=== PATIENT | female | born 1975 | race Caucasian/White ===

== ENCOUNTER 2021-03-30 22:19 | Emergency (ER) | payer MEDICARE, SELFPAY ==
--- NOTE | ~2021-03-30 | CT_ITS ---
EXAMINATION: CT brain wo con DATE: 03/31/2021 00:07 INDICATION: Altered mental status. TECHNIQUE: Computed tomography (CT) of the head was performed without intravenous contrast. The mA wa s adjusted according to patient size. Iterative reconstruction technique was employed. The dose-lengt h product was 681.00 mGy-cm. COMPARISON: None FINDINGS: Motion artifact is noted. There is no intracranial hemorrhage, acute infarction, or abnorma l intracranial mass lesion. The ventricles are normal in size. There is mild mucosal thickening in th e paranasal sinuses. There are small bilateral mastoid effusions, but motion artifact decreases speci ficity. The orbits are normal. IMPRESSION: 1. No acute intracranial pathology. Sensitivity is moderately decreased by motion artifact. Reviewed, dictated and finalized at location A. IMPRESSION: 1. No acute intracranial pathology. Sensitivity is moderately decreased by janelle on artifact.
[2021-03-30 22:33] VITALS: BP 132/86; PULSE 97; RESP 18; TEMP 36.6; O2SAT 97
--- NOTE | 2021-03-30 22:45 | ECG_ITS ---
Measurements Intervals [place] Rate: 83 P: 67 NM: 158 QRS: 53 QRSD: 94 T: 56 QT: 374 QTc: 441 Interpretive Statements SINUS RHYTHM POSSIBLE LEFT ATRIAL ENLARGEMENT BASELINE ARTIFACT- I, II, III, AVR, AVL, AVF BORDERLINE ECG Electronically Signed On 03-31-2021 6:27:59 CDT by Delroy Clifford D.O.
[2021-03-30] MEDS: SODIUM CHLORIDE 0.9% IV 1,000 ML 999 ML IV CONT (22:51)
[2021-03-30 23:03] LABS: Basophils Percent Auto 0.4 % (0.2-1.2); Eosinophils Absolute Auto 0.1 K/mm3 (0-0.3); Eosinophils Percent Auto 1.5 % (0-4.4); Hematocrit 40.1 % (37.0-47.0); Hemoglobin 13.4 g/dL (12.0-15.0); Immature Granulocyte Absolute 0.02 K/mm3 (0.00-0.031); Immature Granulocyte Percent A 0.3 % (0-0.5); Lymphocytes Absolute Auto 2.83 K/mm3 (0.9-3.2); Lymphocytes Percent Auto 41.1 % (18.3-44.2); Mean Corpuscular HGB Conc 33.4 g/dl (32-36); Mean Corpuscular Hemoglobin 30.7 pg (26-34); Mean Corpuscular Volume 91.8 fl (80-100); Mean Platelet Volume 10.8 fl (7.4-10.4); Monocytes Absolute Auto 0.6 K/mm3 (0.1-0.6); Monocytes Percent Auto 8.3 % (2.6-8.5); Neutrophils Absolute Auto 3.3 K/mm3 (1.3-6.7); Neutrophils Percent Auto 48.4 % (45.5-73.1); Platelet Count Result 212 k/mm3 (150-375); Red Blood Count 4.37 M/mm3 (4.2-5.4); Red Cell Distribution Width 12.3 % (11.5-14.5); White Blood Count 6.9 K/mm3 (4.5-10.0)
[2021-03-30 23:13] LABS: Alanine Aminotransferase 16 U/L (4-35); Albumin Level 4.3 g/dL (3.5-5.1); Alkaline Phosphatase 67 U/L (38-126); Anion Gap 6 mmol/L (8-16); Aspartate Amino Transferase 24 U/L (14-36); Bilirubin,Total 0.5 mg/dL (0.2-1.3); Blood Urea Nitrogen 17 mg/dL (7-17); Calcium 9.2 mg/dL (8.4-10.2); Carbon Dioxide 29 mmol/L (22-30); Chloride 104 mmol/L (98-107); Estimated CRCL calculation 103 ml/min; Estimated Glomerular Filt Rate > 60; Ethanol < 10 mg/dL (<10); Glucose 92 mg/dL (65-110); Potassium 3.8 mmol/L (3.4-5.0); Sodium 139 mmol/L (137-145)
[2021-03-30 23:14] LABS: Add Urine Microscopic? YES; Appearance Urine Cloudy (Clear); Bilirubin Urine Negative (Negative); Blood Urine 3+ (Negative); Color Urine Yellow (Yellow); Glucose Urine UA Negative (Negative); Ketones Urine Negative (Negative); Leukocyte Esterase Ur 1+ LEU/UL (Negative); Mucus Urine Rare /lpf; Nitrate Urine Negative (Negative); Protein Urine Negative (Negative); Squamous Epithelial Cell Urine Moderate /hpf (Few); Urobilinogen Urine Negative mg/dL (<2.0)
[2021-03-30 23:23] LABS: Barbiturate Screen Urine Negative (Negative); Benzodiazepines Screen Urine Negative (Negative)
--- NOTE | 2021-03-30 23:26 | ED.AMS ---
HPI - Altered Mental Status General Chief Complaint: Altered Mental Status Stated Complaint: altered Time Seen by Provider: 03/30/21 22:35 Source: patient and EMS Mode of arrival: EMS Limitations: altered mental status History of Present Illness HPI narrative: Patient is a 45-year-old female brought in by EMS after found rolling around someone's yard. Per EMS patient was having paranoid thoughts as she was rolling around the yard screaming. Patient states that she has a history of borderline personality disorder and schizoaffective, claims that she has been taking her medications. Patient denies any suicidal homicidal thoughts. Related Data Allergies Allergy/AdvReac Type Severity Reaction Status Date / Time No Known Allergies Allergy Unverified 06/02/11 12:49 Review of Systems Review of Systems: ROS unobtainable: Yes unobtainable due to mental status [facility] Social History Social History Substance use type: does not use Comments Past medical history: Schizoaffective disorder, borderline personality disorder Family history: Unknown Social history: Non-smoker no EtOH or drug use Exam Const: General: alert Orientation/consciousness: oriented to person, oriented to place, oriented to time, patient oriented x3 and No confusion Limitations: altered mental status Other: Unkempt HENMT: Head: normal to inspection, normocephalic and atraumatic Ears: hearing grossly normal bilaterally, TM normal on the right and TM normal on the left General nose exam: Normal external nose present, Normal nares present and No nasal discharge present Face and sinus: normal facial exam Mouth: Yes Normal oral and palatal mucosa present, Yes lip normal, Yes tongue normal and Yes oropharynx normal Throat: posterior oropharynx normal, tonsils normal and uvula midline Eyes: General: appearance normal, both eyes and all related structures Pupils: Equal, round and reactive pupils present EOM: EOMs intact bilaterally Neck: Neck: normal visual inspection, full ROM, no lymphadenopathy and no meningeal signs Chest: Chest palpation & inspection: normal inspection of the chest Resp: Effort & Inspection: normal respiratory effort, able to speak in complete sentences, no respiratory distress and not tachypneic Auscultation: clear to auscultation bilaterally, no crackles, no rales, no rhonchi and no wheezes Cardio: Rate: regular rate Rhythm: regular rhythm GI: Inspection: normal to inspection GI Palp: No abdominal tenderness, Yes Soft to palpation, No Tenderness to palpation present (GI), No Guarding due to palpation present (GI), No Rigid due to palpation and No Rebound tenderness present Auscultation: normal bowel sounds : General: Yes no CVA tenderness Back/Spine/Pelvis: Back: no CVA tenderness Skin: General skin exam: normal color, no rashes or lesions noted, elasticity normal and turgor normal Neuro: General: oriented to person, oriented to place, tone normal, moves all extremities, Normal light touch and pain sensation, no meningeal signs, no focal motor deficits and No confusion Cranial nerves: Yes Equal, round and reactive pupils present Speech: No Abnormal speech present Sensory Exam: No Sensory deficit (Neuro) Extrem: General: normal to inspection, full ROM and capillary refill normal Psych: Thought content: Yes Paranoid delusions present Other: Unkempt, feeling all extremities, nonsensical words/sentences Course Course Emergency Course: Patient reexamined at 5 AM, patient now oriented x4. Paranoid delusions resolved. Patient states that she does not have anyone that can pick her up and she has no place to stay. Vital Signs Vital signs: Vital Signs Temperature 36.6 C 03/30/21 22:33 Pulse Rate 97 03/30/21 22:33 Respiratory Rate 18 03/30/21 22:33 Blood Pressure 132/86 03/30/21 22:33 Pulse Oximetry 97 03/30/21 22:33 Temperature 36.6 C 03/30/21 22:33 Pulse Rate 106 H 03/31/21 04:51 Respiratory Rate 19
[2021-03-30] MEDS: diphenhydrAMINE HCl INJ 50 MG/ML VIAL 25 MG IV PUSH (23:33)
[2021-03-30 23:34] LABS: Cannabinoid Screen Urine Negative (Negative); Cocaine Screen Urine Negative (Negative); Methadone Screen Urine Negative (Negative); Opiate Screen Urine Negative (Negative); Phencyclidine Screen Urine Negative (Negative)
[2021-03-30] MEDS: HALOPERIDOL LACTATE 5 MG/ML VIAL IV PUSH (23:34)
--- NOTE | 2021-03-30 23:34 | PC.NURSE ---
Pt continues to thrash in stretcher, restless. Given ordered IVP meds per EDP order. Pt remains alert and discussed POC at this time.
--- NOTE | 2021-03-30 23:56 | PC.NURSE ---
Pt to CT scan via stretcher at this time.
[2021-03-31 00:47] VITALS: BP 138/87; PULSE 99; RESP 15; O2SAT 97
[2021-03-31 01:02] LABS: Amphetamine Screen Urine Positive (Negative)
[2021-03-31 02:34] VITALS: BP 144/74; PULSE 101; RESP 18; O2SAT 99
[2021-03-31 04:51] VITALS: BP 139/89; PULSE 106; RESP 19; O2SAT 97
[2021-03-31 07:03] VITALS: BP 132/81; PULSE 87; RESP 15; O2SAT 98
--- NOTE | 2021-03-31 07:03 | PC.NURSE ---
Nurse to Nurse report called to Mario AMIN at [place] [phone], requesting an ETA when EMS arrives to transport pt.
--- NOTE | 2021-03-31 07:16 | PC.NURSE ---
care coordination coming to assist with pt discharge
[2021-03-31 10:08] VITALS: RESP 16; O2SAT 98
--- NOTE | 2021-03-31 10:11 | PCCCNOTE ---
Spoke with patient states that she gets transportation through insurance, does not have phone number or card. Google search for Medicaid [place] transportation [phone] , unable to speak with a rep. Spoke with rep at [employer], advised that since she has managed Medicaid through [facility] must go through [facility] as they will get fined if transportation is provided- advised to call [phone], called to this phone number which was a medical alert company with phone loop and unable to speak with a agency sales representative. Google search [facility] Spoke with Edwige at [facility], at [phone], she states that she will have dispatch work on it and will call w/in the hour to the ER to advise of what company and what time. Reference # [id number]. natural resources specialist notified and patient- Patient states that [address]. Called back to [facility] [employer] spoke with and updated address to [address] and provided with phone # for [employer]- called to [employer] at [phone], spoke with Judd and provided correct # of [phone].
== END 2021-03-31 10:09 | disposition home or self-care (01) ==
PROVIDERS: Emergency Provider Emergency Medicine; PCP Family Medicine
DX: F15.959 Other stimulant use, unspecified with stimulant-induced psychotic disorder, unspecified (principal); F25.9 Schizoaffective disorder, unspecified; F60.3 Borderline personality disorder
CPT/HCPCS: 36415; 70450; 80053; 80307; 81001; 81025; 85025; 93005; 96361; 96374; 96375; 99284; J1200; J1630; J7030

== ENCOUNTER 2023-05-29 08:06 | Emergency (ER) | payer MEDICAID, SELFPAY ==
[2023-05-29] VITALS (7 sets, daily range): BP systolic 148–176; BP diastolic 87–120; PULSE 63–84; RESP 14–20; TEMP 36.9; O2SAT 98–100
--- NOTE | ~2023-05-29 | CT_ITS ---
Non-contrast Head CT History: Headache COMPARISON: 03/30/2021 Technique: Axial non-contrast imaging of the brain was performed. Dose reduction technique was used on this scan by utilizing automated exposure control and iterative reconstruction technique. The dose -length product (DLP) was 681.00 mGy-cm. Findings: There is no evidence of intracranial hemorrhage, mass lesion, or acute infarct. Brain par enchyma appears normal. The ventricles and subarachnoid spaces are normal in size. The calvarium ap pears normal. The visualized paranasal sinuses and mastoid air cells are clear. Impression: No significant abnormality seen. Reviewed, dictated and finalized at location . [facility] Impression: No significant abnormality seen.
--- NOTE | ~2023-05-29 | XR_ITS ---
Clinical Indication: Hypertension, cough PA and lateral views of the chest: Comparison: 05/12/2022 Findings: The lungs are clear, without evidence of focal consolidation or pleural effusion. Cardiome diastinal silhouette is within normal limits. Bones and soft tissues are unremarkable. Impression: Normal chest. Reviewed, dictated and finalized at [facility]. PRESS OPERATOR Impression: Normal chest.
--- NOTE | 2023-05-29 09:00 | ED.RECABL ---
HPI - Recheck/Abnormal Lab/Rx General Chief Complaint: Recheck/Abnormal Lab/Rx Stated Complaint: B/P problems Time Seen by Provider: 05/29/23 09:00 Source: patient Mode of arrival: ambulatory Limitations: no limitations History of Present Illness HPI narrative: Rosaura is a 48-year-old female patient presenting to the ER today with complaints of high blood pressure, headache, dizziness, sore throat, chest congestion, and cough. She reports she has had the cough and congestion with the sore throat for a few days now however this morning she woke up and her blood pressure was 200 systolic. She is currently in [facility] [place]-states she is going to rehab soon for meth abuse. Reports she has been clean of meth for 2 weeks now. Related Data Allergies Allergy/AdvReac Type Severity Reaction Status Date / Time ziprasidone [From Geodon] Allergy Chest Pain Verified 05/29/23 08:08 aripiprazole [From Abicarmen] AdvReac Other Verified 05/29/23 08:08 Review of Systems Review of Systems: Pertinent positives per HPI. Patient denies any fever, chills, rash, visual changes, dizziness, shortness of breath, chest pain, palpitations, nausea, vomiting, diarrhea, constipation, abdominal pain, or any urinary issues. [facility] Social History Social History Substance use type: does not use Comments At the time of my signature, I reviewed and agree with the nursing past medical, surgical, social, and family history. There is no relevant family history pertinent to the patient complaint. Exam Narrative: General: Well-developed, well nourished, in no apparent distress Head: Normocephalic, atraumatic Eyes: Pupils equally round and reactive to light bilaterally, EOM intact, sclera and conjunctive clear, no discharge, lids normal Ears: TMs intact and congested, ear canals clear, no drainage, grossly hearing normal. Nose: Nares patent, clear discharge, no inflammation, no sinus tenderness. Mouth: Oropharynx without lesions or masses, poor dentition, MMM. Tongue midline, even rise and fall of uvula Neck: Supple, trachea midline, no enlargement of anterior or posterior cervical nodes, no thyroid masses or goiter palpable. Cardio: Regular rate and rhythm, s1 and s2 normal, no murmur appreciated. Resp: Diminished in bases otherwise clear, no rhonchi, rales, wheezing or rubs Musculoskeletal: No deformity, non-tender to palpation, grossly normal range of motion, muscle strength strong and equal, peripheral pulse strong, no edema, no cyanosis, normal gait and station Neuro: Alert and oriented x4 with normal speech, no focal deficits, cranial nerves I through XII intact, muscle strength 5 out of 5, sensation intact bilaterally Course Course Emergency Course: Portions of this record may have been created with voice recognition software. Vital Signs Vital signs: Vital Signs Temperature 36.9 C 05/29/23 08:14 Pulse Rate 84 05/29/23 08:14 Respiratory Rate 20 05/29/23 08:14 Blood Pressure 160/100 H 05/29/23 08:14 Pulse Oximetry 100 05/29/23 08:14 Oxygen Delivery Room Air 05/29/23 08:14 Temperature 36.9 C 05/29/23 08:14 Pulse Rate 66 05/29/23 10:41 Respiratory Rate 16 05/29/23 10:41 Blood Pressure 148/87 H 05/29/23 10:41 Pulse Oximetry 100 05/29/23 10:41 Oxygen Delivery Room Air 05/29/23 08:14 Vital signs reviewed MDM - Recheck/Abnormal Lab/Rx MDM Narrative Medical decision making narrative: At the time of visit patient is resting comfortably on the exam table. Patient appears to be nontoxic. COVID/flu, CT of the brain, chest x-ray, EKG, and labs were performed. Patient was given 1 g of Tylenol for her headache. Clonidine 0.1 mg p.o. was given in the ER. Nursing staff unable to obtain IV access initially. CT of the brain is negative for any acute intracranial process, chest x-rays negative for any sign of pneumonia. EKG shows s
--- NOTE | 2023-05-29 09:04 | ECG_ITS ---
Measurements Intervals [place] Rate: 66 P: 32 [place]: 160 QRS: 20 QRSD: 98 T: 92 QT: 378 QTc: 398 Interpretive Statements SINUS RHYTHM POSSIBLE LEFT ATRIAL ENLARGEMENT [-0.1mV P WAVE IN V1/V2] NONSPECIFIC T-WAVE ABNORMALITY COMPARED TO ECG 03/30/2021 22:48:07 NO SIGNIFICANT CHANGES Electronically Signed On 05-29-2023 13:54:34 WARRANTY ADMINISTRATOR by Sam Willard M.D.
[2023-05-29] MEDS: ACETAMINOPHEN 500 MG TABLET 1000 MG PO (09:38)
[2023-05-29] MEDS: cloNIDine HCL 0.1 MG TABLET PO (09:43)
[2023-05-29 09:55] LABS: Basophils Absolute Auto 0.1 K/mm3 (0.0-0.1); Basophils Percent Auto 0.6 % (0.2-1.2); Eosinophils Absolute Auto 0.2 K/mm3 (0-0.3); Eosinophils Percent Auto 2.2 % (0-4.4); Hematocrit 50.5 % (37.0-47.0); Hemoglobin 16.3 g/dL (12.0-15.0); Immature Granulocyte Absolute 0.03 K/mm3 (0.00-0.031); Immature Granulocyte Percent A 0.4 % (0-0.5); Lymphocytes Absolute Auto 1.87 K/mm3 (0.9-3.2); Lymphocytes Percent Auto 21.8 % (18.3-44.2); Mean Corpuscular HGB Conc 32.3 g/dl (32-36); Mean Corpuscular Hemoglobin 29.7 pg (26-34); Mean Corpuscular Volume 92.2 fl (80-100); Mean Platelet Volume 11.1 fl (7.4-10.4); Monocytes Absolute Auto 0.6 K/mm3 (0.1-0.6); Monocytes Percent Auto 7.5 % (2.6-8.5); Neutrophils Absolute Auto 5.8 K/mm3 (1.3-6.7); Neutrophils Percent Auto 67.5 % (45.5-73.1); Platelet Count Result 217 k/mm3 (150-375); Red Blood Count 5.48 M/mm3 (4.2-5.4); Red Cell Distribution Width 12.5 % (11.5-14.5); White Blood Count 8.6 K/mm3 (4.5-10.0)
[2023-05-29 10:07] LABS: Alanine Aminotransferase 26 U/L (6-35); Albumin Level 4.4 g/dL (3.5-5.1); Alkaline Phosphatase 79 U/L (38-126); Anion Gap 7 mmol/L (8-16); Aspartate Amino Transferase 22 U/L (14-36); Bilirubin,Total 0.5 mg/dL (0.2-1.3); Blood Urea Nitrogen 25 mg/dL (7-17); Calcium 9.3 mg/dL (8.4-10.2); Carbon Dioxide 29 mmol/L (22-30); Chloride 99 mmol/L (98-107); Estimated CRCL calculation 97 ml/min; Estimated Glomerular Filt Rate > 60; Glucose 98 mg/dL (65-110); Potassium 4.1 mmol/L (3.4-5.0); Sodium 135 mmol/L (137-145)
[2023-05-29 10:18] LABS: Troponin I < 0.012 ng/mL (0.000-0.034)
[2023-05-29] MEDS: hydrALAZINE HCL 20 MG/ML VIAL 10 MG IV PUSH (10:22)
[2023-05-29 10:23] LABS: Strep Group A RT-PCR NOT DETECTED (Negative)
[2023-05-29 10:34] LABS: Influenza A QL RT-PCR Negative (Negative); Influenza B QL RT-PCR Negative (Negative); SARS-CoV-2 RNA PCR Negative (Negative)
== END 2023-05-29 10:53 | disposition home or self-care (01) ==
PROVIDERS: Emergency Provider Nurse Practitioner Family; PCP Family Medicine
DX: J06.9 Acute upper respiratory infection, unspecified (principal); I10 Essential (primary) hypertension; Z20.822 Contact with and (suspected) exposure to COVID-19
CPT/HCPCS: 36415; 70450; 71046; 80053; 84484; 85025; 87636; 87651; 93005; 96374; 99284; A9270; J0360